=== PATIENT | female | born 1995 | race Caucasian/White ===

== ENCOUNTER 2025-03-24 23:09 | Emergency (ER) | payer OTHER ==
[~2025-03-24] VITALS: Ht 165.1 cm; Wt 68.6 kg
[~2025-03-24 23:09] MED LIST: PNV11TAB PO
[2025-03-24 23:18] VITALS: BP 114/83; PULSE 90; RESP 18; TEMP 97.7; O2SAT 98
[2025-03-24 23:44] LABS: APPEARANCE,URINE HAZY (CLEAR); GLUCOSE, URINE (UA) NEGATIVE (NEGATIVE); LEUKOCYTE ESTERASE ,URINE LARGE (NEGATIVE); NITRATE,URINE NEGATIVE (NEGATIVE); OCCULT BLOOD,URINE MODERATE (NEGATIVE); SPECIFIC GRAVITIY, URINE 1.013 (1.003-1.030)
[2025-03-25 00:17] LABS: PLATELET COUNT (AUTO) 219 K/uL (150-450); RED BLOOD CELL COUNT(AUTO) 4.51 MIL/uL (4.00-5.20); RED CELL DISTRIBUTION WIDTH 13.9 % (11.5-14.5); WHITE BLOOD COUNT (AUTO) 10.1 K/uL (4.5-11.0)
[2025-03-25 00:20] LABS: CALCIUM, TOTAL 8.5 mg/dL (8.8-10.5); CREATININE 0.57 mg/dL (0.60-1.30); GLOMERULAR FILTR. RATE CALC > 60 mL/min (>60); GLUCOSE,RANDOM 90 mg/dL (70-110); SODIUM SERUM 137 mmol/L (136-145); UREA NITROGEN, BLOOD 6 mg/dL (7-18)
[2025-03-25 00:22] LABS: SQUAMOUS EPITHELIAL CELL,UR Few /LPF (None Seen); SULFOSALICYLIC ACID,URINE 2+ (Negative)
[2025-03-25] MEDS ORDERED: CEFP100T8 PO (02:08)
[2025-03-25] MEDS: LIDOCAINE 5% TRANSDERMAL PATCH TD ONE (02:15)
[2025-03-25] MEDS: CEFPODOXIME PROXETIL 100 MG TABLET PO ONE (02:15)
== END 2025-03-25 03:00 | disposition home or self-care (01) ==
LOC: EMS 23:12
DX: O9A.212 Injury, poisoning and certain other consequences of external causes complicating pregnancy, second trimester (principal); T63.441A Toxic effect of venom of bees, accidental (unintentional), initial encounter; O23.42 Unspecified infection of urinary tract in pregnancy, second trimester; Z79.899 Other long term (current) drug therapy; Z3A.21 21 weeks gestation of pregnancy
CPT/HCPCS: 80048; 81001; 81002; 84702; 85025; 87077; 87086; 87186; 99283